=== PATIENT | female | born 1955 | race American Indian/Alaskan Native ===

== ENCOUNTER 2022-05-21 08:31 | Day surgery (SDC) | payer MEDICARE ==
[2022-05-21] MEDS ORDERED: SODIUM CHLORIDE 0.9% 1000 ML 1,000 ML ONE (08:50)
[2022-05-21] MEDS ORDERED: HYDROmorphone 0.5 MG/0.5 ML INJ IV PRN ×2 (09:16)
[2022-05-21] MEDS ORDERED: ONDANSETRON 4 MG/2 ML INJ IV PRN (09:16)
--- NOTE | 2022-05-21 09:17 | Anesthesia Day of Surgery ---
Anesthesia Day of Surgery - Day of Surgery Patient Examined: Yes Patient H&P Reviewed: Yes Patient is NPO: Yes Beta Blockers: Yes
--- NOTE | 2022-05-21 09:19 | Anesthesia Consultation ---
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
[2022-05-21] MEDS ORDERED: HEPARIN 10,000 UNITS/10 ML VIAL ONE ×2 (09:32→12:14)
[2022-05-21] MEDS ORDERED: SODIUM CHLORIDE P/F VIAL 10 ML 10 ML ONE (09:32)
[2022-05-21] MEDS ORDERED: rifAMPin 600 MG VIAL ONE (09:32)
[2022-05-21] MEDS ORDERED: SODIUM CHLORIDE 0.9% 250ML 250 ML ONE (09:32)
[2022-05-21] MEDS ORDERED: BUPIVACAINE/PF (0.5%) 5 MG/1 ML 30 ML VIAL INFILTRATI ONE ×2 (09:32→11:56)
[2022-05-21] MEDS ORDERED: SODIUM CHLORIDE 0.9% 500 ML 500 ML ONE (09:32)
[2022-05-21] MEDS ORDERED: SODIUM CHLORIDE 0.9% 1000 ML 1,000 ML IV SCH (10:00)
[2022-05-21] MEDS ORDERED: LIDOCAINE MPF (2%) 20 MG/1 ML VIAL 5 ML ONE (10:04)
[2022-05-21] MEDS ORDERED: fentaNYL 100 MCG/2 ML INJ ONE (10:04)
[2022-05-21] MEDS ORDERED: propofoL 200 MG/20 ML VIAL IV ONE (10:04)
[2022-05-21] MEDS ORDERED: ONDANSETRON 4 MG/2 ML INJ ONE (10:04)
[2022-05-21 10:06] LABS: Hematocrit 26.6 % (30.3-42.9); Hemoglobin 8.9 gm/dl (10.1-14.3); Mean Corpuscular HGB Conc 34 % (30-34); Mean Corpuscular Volume 91 fl (79-97); Platelet Count 240 K/mm3 (140-440); Red Blood Count 2.92 M/mm3 (3.65-5.03); Red Cell Distribution Width 14.4 % (13.2-15.2)
[2022-05-21 10:30] LABS: Calcium 9.3 mg/dL (8.4-10.2)
[2022-05-21] MEDS ORDERED: HEPARIN 10,000 UNITS/10 ML VIAL IV ONE (11:54)
[2022-05-21] MEDS ORDERED: rifAMPin 600 MG VIAL IV ONE (11:56)
[2022-05-21] MEDS ORDERED: SODIUM CHLORIDE 0.9% IRR 1,500 ML BOTTLE IR ONE (11:57)
[2022-05-21] MEDS ORDERED: SODIUM CHLORIDE 0.9% 500 ML IVPB IRRIGATION ONE (11:58)
[2022-05-21] MEDS ORDERED: SODIUM CHLORIDE 0.9% 250 ML IVPB IV ONE (11:58)
[2022-05-21] MEDS ORDERED: PHENYLEPHRINE/NS 1,000 MCG/10 ML SYRINGE (OR USE) IV ONE (13:01)
--- NOTE | 2022-05-21 13:10 | Short Stay Summary ---
Short Stay Documentation Date of service: 05/21/22 Narrative H&P: See H&P - History H&P: obtained from office - Allergies and Medications Current Medications: Allergies Penicillins Allergy (Verified 05/14/22 16:59) Swelling Home Medications Medication Instructions Recorded Confirmed Last Taken Type Amlodipine/Valsartan/Hcthiazid 1 each PO QDAY 05/14/22 05/14/22 05/20/22 History [Cgjbt-Fibps-Zyxq 10-320-25 mg] Aspirin EC [Ecotrin] 325 mg PO QDAY 05/14/22 05/14/22 05/20/22 History AtorvaSTATin [Lipitor] 10 mg PO QHS 05/14/22 05/14/22 05/20/22 History Cetirizine HCl [Allergy] 10 mg PO QDAY 05/14/22 05/14/22 05/20/22 History Furosemide [Lasix] 40 mg PO BID 05/14/22 05/14/22 05/20/22 History Insulin Detemir [Levemir Flextouch] 80 unit SQ BID 05/14/22 05/14/22 05/20/22 History Insulin Lispro [Humalog 100 28 units SQ AC 05/14/22 05/14/22 05/20/22 History UNITS/ML Kwikpen] Olmesartan (Nf) [Benicar (Nf)] 40 mg PO QDAY 05/14/22 05/14/22 05/20/22 History PARoxetine [Paxil] 20 mg PO DAILY 05/14/22 05/14/22 05/21/22 07:00 History Sodium Bicarbonate 650 mg PO TID 05/14/22 05/14/22 05/20/22 History Sodium Zirconium Cyclosilicate 10 gm PO QDAY 05/14/22 05/14/22 05/20/22 History [Lokelma] calcitrioL [Rocaltrol] 0.25 mcg PO TID 05/14/22 05/14/22 05/20/22 History carvediloL [Coreg] 3.125 mg PO BID 05/14/22 05/14/22 05/21/22 07:00 History cloNIDine [Catapres] 0.2 mg PO BID 05/14/22 05/14/22 05/21/22 07:00 History hydroCHLOROthiazide [HCTZ] 25 mg PO QDAY 05/14/22 05/14/22 05/20/22 History Active Medications Hydromorphone HCl (Hydromorphone 0.5 Mg/0.5 Ml Inj) 0.5 mg IV Q10MIN PRN PRN Reason: Pain , Severe (7-10) Stop: 05/21/22 20:00 Hydromorphone HCl (Hydromorphone 0.5 Mg/0.5 Ml Inj) 0.25 mg IV Q10MIN PRN PRN Reason: Pain, Moderate (4-6) Stop: 05/21/22 20:00 Clindamycin HCl (Cleocin 900 Mg/50 Ml) 900 mg in 50 mls @ 100 mls/hr IV PREOP COLEEN; Protocol Sodium Chloride (Nacl 0.9% 1000 Ml) 1,000 mls @ 42 mls/hr IV DIRECT COLEEN Last Admin: 05/21/22 10:00 Dose: 42 mls/hr - Brief post op/procedure progress note Date of procedure: 05/21/22 Pre-op diagnosis: Chronic Renal Insufficiency Post-op diagnosis: same Procedure: 1. Creation of Right Axillary Artery to Right Axillary Vein Arteriovenous Loop Graft with 5 mm Bovine Artegraft Anesthesia: GETA Surgeon: SENAIT CHRISTY Estimated blood loss: minimal Pathology: none Condition: stable - Disposition Condition at discharge: Good Short Stay Discharge Plan Wound: other (Okay to shower and wash the right arm incisions with soap and water but do not soak in water for 2 weeks.) Follow up with: SENAIT CHRISTY MD [Staff Physician] - 14 Days Prescriptions: HYDROcodone/APAP 5-325 [Grover 5/325] 1 each PO Q4HR PRN #30 tablet PRN Reason: Pain
--- NOTE | 2022-05-21 13:14 | Operative Report ---
Operative Report Operative Report: Date of Procedure: 05/21/2022 Pre-operative Diagnosis: Chronic Renal Sufficiency Post-operative Diagnosis: Same Procedure(s): 1. The Right axillary Artery to Axillary Vein Arteriovenous Loop Graft with 5 mm Bovine Artegraft Surgeon: Tremayne Buchanan M.D. [employer] Plant Maintainer: Jame Anesthesia: Gen. Endotracheal Anesthesia EBL: Minimal Counts: Correct Complications: None Condition: Stable Findings: Successful creation of right arm AV graft with adequate thrill at the completion of the case. Specimen: None Indication: The patient is a 67-year-old female with a history of chronic renal sufficiency who is not yet on hemodialysis however it is anticipated that she will require hemodialysis in the near future. She is in need of permanent dialysis access to prevent the placement of a permacath if she does progress to hemodialysis. She is right-hand dominant however she did have a stroke which has left her with an atretic and contracted arm. I discussed that it would be best to place the graft in the right arm to prevent any complications in her now dominant arm and to allow her to control any bleeding if she were to bleed. She was also given the risk, benefits, and alternative procedures and expressed understanding of the plan as well as the RBA's and has agreed to proceed. Description of Procedure: The patient was brought to the operating room and laid in supine position. After general endotracheal anesthesia was achieved the right arm was prepped and draped in normal sterile fashion. A longitudinal incision was created on the medial aspect of the arm and carried down to the axillary vein using sharp dissection. This was dissected circumferentially and controlled with a vessel loop. I then turned my attention to the axillary artery. The axillary artery was dissected circumferentially and controlled with 2 vessel loops. I used a Grace-Wick tunneler to tunnel the graft in a loop fashion. I made an intensely wide loop that is significantly lateral to allow use of the graft when the patient's arm is her natural contracted position. A counterincision was created, in the mid arm to assist with pulling the graft through the tunnel. I systemically heparinized the patient with 3000 units of heparin IV and then used angled DeBakey clamps to control flow in the axillary artery. I created an arteriotomy using an 11 blade and Medina scissors. I then created an end-to-side anastomosis using a 6-0 Prolene in running fashion. After completing the anastomosis I released the clamps allowing flow into the graft, which had adequate flow. I reclamped the graft just distal to the arterial anastomosis. I then cut the venous portion of the graft to length and beveled the end. I controlled the axillary vein with a Satinsky clamp and created a venotomy using an 11 blade and Medina scissors. I created an end-to-side anastomosis using a 6-0 Prolene in running fashion. Prior to completing the anastomosis I flashed the vein as well as the arterial inflow of the graft and then reclamped both vessels. I flushed the venotomy with heparinized saline, to clear any thrombus. I then completed the anastomosis and removed all clamps allowing flow into the graft. There was an adequate thrill. Hemostasis was achieved with a combination of Quick Clot and direct pressure. Once hemostasis was achieved both incisions were anesthetized with 0.5% Marcaine and closed in 2 layers using a 3-0 Vicryl, in a running fashion, in the deep dermal layer, and a 4-0 Monocryl, in running fashion, in the subcuticular layer. The wounds were then dressed with Dermabond. The patient tolerated the procedure well. All sponge, needle, and instrument counts were correct. The patient was taken to recovery in stable condition.
--- NOTE | 2022-05-21 14:30 | Post Anesthesia Evaluation ---
- Post Anesthesia Evaluation Patient Participated: Yes Airway Patent: Yes Stable Respiratory Function: Yes Nausea/Vomiting: No Temp > 96.8F: Yes Pain Manageable: Yes Adequeate Hydration: Yes Anesthesia Complications: No Block Receding Appropriately: Not Applicable Patient on Ventilator: No
[2022-05-21 15:19] VITALS: BP 137/56
== END 2022-05-21 15:05 | disposition home or self-care (01) ==
LOC: OR 08:31
PROVIDERS: ATTEND Surgery Vascular Surgery
DX: I12.0 Hypertensive chronic kidney disease with stage 5 chronic kidney disease or end stage renal disease (principal); E11.22 Type 2 diabetes mellitus with diabetic chronic kidney disease; N18.6 End stage renal disease; E78.00 Pure hypercholesterolemia, unspecified; E66.9 Obesity, unspecified; M19.90 Unspecified osteoarthritis, unspecified site; F32.9 Major depressive disorder, single episode, unspecified; Z98.890 Other specified postprocedural states; Z88.0 Allergy status to penicillin; Z79.4 Long term (current) use of insulin; Z90.49 Acquired absence of other specified parts of digestive tract; Z68.37 Body mass index [BMI] 37.0-37.9, adult; Z90.710 Acquired absence of both cervix and uterus; Z96.653 Presence of artificial knee joint, bilateral; Z72.89 Other problems related to lifestyle; Z79.899 Other long term (current) drug therapy; Z86.73 Personal history of transient ischemic attack (TIA), and cerebral infarction without residual deficits
CPT/HCPCS: 36415; 36830; 80048; 82962; 85027; C1757; C1768; J1644; J2370; J2405; J2704; J3010; J3490; J7030; J7040; J7050; J7502